=== PATIENT | female | born 1960 | race Caucasian/White ===

== ENCOUNTER 2018-02-24 04:19 | Emergency (ER) | payer MEDICARE, MEDICAID ==
[~2018-02-24] VITALS: Ht 152.4 cm; Wt 63.0 kg
[~2018-02-24 04:19] MED LIST: CLOP75TA15 PO; FENO145T38 PO; NICO-578 TD; NICO-631 TD; TRIA1CAP6 PO; ZOLP5TAB8 PO
[2018-02-24 04:21] VITALS: BP 137/80
[2018-02-24] MEDS ORDERED: normal saline 1000ML IV soln IVB ONE (04:30)
[2018-02-24 04:56] LABS: BASOPHILS % (AUTO) 0.3 % (0-1); EOSINOPHILS # (AUTO) 0.3 X10'3 (0-0.9); HEMATOCRIT 42.6 % (35.0-45.0); LYMPHOCYTES # (AUTO) 2.1 X10'3 (1.1-4.8); LYMPHOCYTES % (AUTO) 26.3 % (21-51); MEAN CORPUSCULAR HEMOGLOBIN 32.3 PG (27.0-31.0); MEAN CORPUSCULAR HGB CONC 35.3 % (33.0-36.5); MEAN CORPUSCULAR VOLUME 91.7 FL (78-98); MEAN PLATELET VOLUME 8.1 FL (7.4-10.4); MONOCYTES # (AUTO) 0.5 X10'3 (0-0.9); MONOCYTES % (AUTO) 5.6 % (2-12); NEUTROPHILS # (AUTO) 5.1 X10'3 (1.8-7.7); NEUTROPHILS % (AUTO) 63.8 % (42-75); PLATELET COUNT 230 X10'3 (140-440); RED BLOOD COUNT 4.65 X10'6 (4.20-5.60); RED CELL DISTRIBUTION WIDTH 13.5 % (11.5-14.5); WHITE BLOOD COUNT 8.1 X10'3 (4.5-11.0)
[2018-02-24 05:23] LABS: ALANINE AMINOTRANSFERASE 43 U/L (12-78); ALBUMIN 3.9 G/DL (3.4-5.0); ALKALINE PHOSPHATASE 104 IU/L (46-116); ANION GAP 14 (8-16); ASPARTATE AMINO TRANSFERASE 34 U/L (10-37); BILIRUBIN,TOTAL 0.4 MG/DL (0.1-1.0); BLOOD UREA NITROGEN 13 MG/DL (7-18); BUN/CREATININE RATIO 15.9 (6.6-38.0); CALCIUM 9.4 MG/DL (8.5-10.1); CHLORIDE 106 MMOL/L (99-107); CREATININE 0.82 MG/DL (0.40-0.90); GLUCOSE 108 MG/DL (70-104); PHOSPHORUS 4.4 MG/DL (2.3-4.5); POTASSIUM 3.8 MMOL/L (3.5-5.1); SODIUM 142 MMOL/L (135-145); TOTAL CARBON DIOXIDE 22.2 MMOL/L (24-32); TOTAL PROTEIN 7.7 G/DL (6.4-8.2); eGFR 72 ML/MIN
[2018-02-24] MEDS ORDERED: LORA0.5T PO (05:54)
== END 2018-02-24 06:10 | disposition home or self-care (01) ==
LOC: ER 04:19
DX: R00.0 Tachycardia, unspecified (principal); F41.9 Anxiety disorder, unspecified; F17.200 Nicotine dependence, unspecified, uncomplicated; Z88.5 Allergy status to narcotic agent; Z79.02 Long term (current) use of antithrombotics/antiplatelets; Z86.73 Personal history of transient ischemic attack (TIA), and cerebral infarction without residual deficits
CPT/HCPCS: 36415; 71045; 80053; 83735; 83880; 84100; 84443; 84484; 85025; 93005; 99285; J7030

== ENCOUNTER 2018-11-05 08:45 | Day surgery (SDC) | payer MEDICARE, MEDICAID ==
[2018-10-28 11:55] LABS: BASOPHILS # (AUTO) 0.1 X10'3 (0-0.2); BASOPHILS % (AUTO) 0.7 % (0-1); EOSINOPHILS # (AUTO) 0.3 X10'3 (0-0.9); EOSINOPHILS % (AUTO) 3.2 % (0-6); LYMPHOCYTES # (AUTO) 2.5 X10'3 (1.1-4.8); LYMPHOCYTES % (AUTO) 26.8 % (21-51); MEAN CORPUSCULAR HEMOGLOBIN 30.8 PG (27.0-31.0); MEAN CORPUSCULAR HGB CONC 33.7 % (33.0-36.5); MEAN CORPUSCULAR VOLUME 91.3 FL (78-98); MEAN PLATELET VOLUME 8.6 FL (7.4-10.4); MONOCYTES # (AUTO) 0.5 X10'3 (0-0.9); MONOCYTES % (AUTO) 5.8 % (2-12); NEUTROPHILS # (AUTO) 5.9 X10'3 (1.8-7.7); NEUTROPHILS % (AUTO) 63.5 % (42-75); PRE OP HEMATOCRIT 43.3 % (35.0-45.0); PRE OP HEMOGLOBIN 14.6 g/dL (12.0-16.0); PRE OP PLATELET COUNT 293 X10'3 (140-440); RED BLOOD COUNT 4.74 X10'6 (4.20-5.60); RED CELL DISTRIBUTION WIDTH 12.6 % (11.5-14.5)
[2018-10-28 12:05] LABS: ALBUMIN 4.2 G/DL (3.4-5.0); ALBUMIN/GLOBULIN RATIO 1.2 (1.1-1.5); ALKALINE PHOSPHATASE 106 IU/L (46-116); BLOOD UREA NITROGEN 11 MG/DL (7-18); BUN/CREATININE RATIO 15.3 (6.6-38.0); CHLORIDE 99 MMOL/L (99-107); CREATININE 0.72 MG/DL (0.40-0.90); PRE OP ALT 43 U/L (30-65); PRE OP ANION GAP 16 (8-16); PRE OP AST 34 U/L (10-37); PRE OP BILIRUB, TOTAL 0.7 MG/DL (0.0-1.0); PRE OP GLUCOSE 116 MG/DL (70-104); PRE OP POTASSIUM 3.7 MMOL/L (3.4-5.1); PRE OP SODIUM 137 MMOL/L (135-145); TOTAL CARBON DIOXIDE 21.6 MMOL/L (24-32); TOTAL PROTEIN 7.8 G/DL (6.4-8.2); eGFR 84 ML/MIN
[2018-11-05] VITALS (10 sets, daily range): BP systolic 96–131; BP diastolic 57–82
[~2018-11-05] VITALS: Ht 152.4 cm; Wt 64.9 kg
[~2018-11-05 08:45] MED LIST changes: +ACET-2119 PO; +ATOR40TA PO; +FENO145T36 PO; -FENO145T38 PO; +HYDR-3686 PO; +MULT-38 PO; -NICO-578 TD; -NICO-631 TD; -TRIA1CAP6 PO; +VANCOMYCIN INJ 1000 MG in NORMAL SALINE 250ml IV.SOLN IV ONE; +VERA180T PO; +ZOLP12.52 PO; -ZOLP5TAB8 PO; +cefazolin/dext.iso 2gm/50ml 50 ML IV ONE; +famotidine 20mg tablet PO ONE; +ringers solution, lacted 1,000 ML IV SCH
[2018-11-05] MEDS ORDERED: triamcinolone acetonide 40mg/ml inj ONE (09:37)
[2018-11-05] MEDS ORDERED: BUPIVAcaine/PF 2.5mg/ml (0.25%) 10ml vial ONE (09:38)
[2018-11-05] MEDS ORDERED: MIDAZolam 5mg/ml 2ml vial IV PRN (09:55)
--- NOTE | 2018-11-05 10:42 | NUR ---
PT CO ANXIETY WANTED SOME SEDATION, DR COOPER AWARE, MED IV WITH GOOD RESULTS. PT HAS HAD RECENT BLEPHAROPLASTY ANESTHESIOLOGIST AWARE, ALSO HAS SLIGHT SCRAPE ON LEFT KNEE, DR ADORNO AWARE.
[2018-11-05] MEDS ORDERED: MIDAZolam 5mg/5ml vial ONE (10:45)
[2018-11-05] MEDS ORDERED: LIDOcaine 2% (20mg/ml) 5ml vial ONE (10:46)
[2018-11-05] MEDS ORDERED: morphine 10mg/ml inj. ONE ×3 (10:46→11:22)
[2018-11-05] MEDS ORDERED: dexamethasone sod phosphate 4mg/ml inj. ONE (10:46)
[2018-11-05] MEDS ORDERED: propofol inj 20 ML IV ONE ×2 (10:46→11:18)
[2018-11-05] MEDS ORDERED: ondansetron/PF 4mg/2ml inj ONE (10:47)
[2018-11-05] MEDS ORDERED: sevoflurane 250ml liquid IH ONE (10:48)
[2018-11-05] MEDS ORDERED: cloNIDine hcl/PF 100mcg/ml inj ONE (10:48)
[2018-11-05] MEDS ORDERED: ketorolac trometh. 30mg/ml inj. ONE ×2 (10:48→11:24)
[2018-11-05] MEDS ORDERED: ringers solution, lacted 1,000 ML IV SCH ×2 (11:36→12:51)
[2018-11-05] MEDS ORDERED: labetalol 20mg/4ml (5mg/ml) syringe IV PRN ×2 (11:40→12:55)
[2018-11-05] MEDS ORDERED: HYDROmorphone inj. 0.5 MG/0.5 ML DISP.SYRIN IV PRN ×4 (11:40→12:55)
[2018-11-05] MEDS ORDERED: ondansetron/PF 4mg/2ml inj IV PRN ×2 (11:40→12:55)
[2018-11-05] MEDS ORDERED: fentaNYL/PF 50MCG/1 ML 2ML syringe IV PRN ×4 (11:40→12:55)
[2018-11-05] MEDS ORDERED: hydrALAZINE 20mg/ml inj. IV PRN ×2 (11:40→12:55)
--- NOTE | 2018-11-05 12:00 | NUR ---
Received from OR via BED , accompanied by Anesthesiologist DR VELAZQUEZ and report given by Anesthesiolgist. PATIENT WAKING UP, NO S/S OF PAIN, V/S WNL, NEUROVASCULAR CHECKS INTACT. PIV 20G TO LUE , SCD ON, DRESSING TO LEFT KNEE CDI.
--- NOTE | 2018-11-05 12:48 | NUR ---
PATIENT AWAKE DENIES PAIN, V/S STABLE
--- NOTE | 2018-11-05 13:20 | NUR ---
PATIENT A&OX4, DENIES PAIN, V/S WNL, NEUROVASCULAR CHECKS INTACT. PIV 20G TO LUE D/C, SCD OFF, DRESSING TO LEFT KNEE CDI. I HAVE REVIEWED D/C INSTRUCTIONS WITH PATIENT AND SHE HAS VERBALIZED UNDERSTANDING. PATIENT D/C HOME WITH ALL BELONGINGS AND HER DAUGHTER GAVE TRANSPORT HOME.
== END 2018-11-05 13:20 | disposition home or self-care (01) ==
LOC: PRE-OP 08:45
PROVIDERS: ATTEND Orthopaedic Surgery
DX: M23.222 Derangement of posterior horn of medial meniscus due to old tear or injury, left knee (principal); M23.262 Derangement of other lateral meniscus due to old tear or injury, left knee; M22.42 Chondromalacia patellae, left knee; F41.8 Other specified anxiety disorders; I10 Essential (primary) hypertension; E78.5 Hyperlipidemia, unspecified; E66.9 Obesity, unspecified; F17.210 Nicotine dependence, cigarettes, uncomplicated; I49.8 Other specified cardiac arrhythmias; M17.0 Bilateral primary osteoarthritis of knee; H91.8X3 Other specified hearing loss, bilateral; F10.10 Alcohol abuse, uncomplicated; F32.9 Major depressive disorder, single episode, unspecified; Z79.891 Long term (current) use of opiate analgesic; Z88.5 Allergy status to narcotic agent; Z98.41 Cataract extraction status, right eye; Z98.42 Cataract extraction status, left eye; Z86.73 Personal history of transient ischemic attack (TIA), and cerebral infarction without residual deficits; Z79.01 Long term (current) use of anticoagulants; Z87.2 Personal history of diseases of the skin and subcutaneous tissue; Z68.27 Body mass index [BMI] 27.0-27.9, adult; Z86.14 Personal history of Methicillin resistant Staphylococcus aureus infection; Z79.899 Other long term (current) drug therapy; Z98.890 Other specified postprocedural states
CPT/HCPCS: 29873; 29879; 29880; 36415; 80053; 85025; 93005; A6449; J0690; J0735; J1100; J1885; J2001; J2250; J2270; J2405; J2704; J3301; J3370; J3490; A6250; A7000; J7030; J7120

== ENCOUNTER 2019-11-21 16:30 | Emergency (ER) | payer MEDICARE, MEDICAID ==
[~2019-11-21] VITALS: Ht 165.1 cm; Wt 80.0 kg
[~2019-11-21 16:30] MED LIST changes: +FENO145T26 PO; -FENO145T36 PO; -VANCOMYCIN INJ 1000 MG in NORMAL SALINE 250ml IV.SOLN IV ONE; -cefazolin/dext.iso 2gm/50ml 50 ML IV ONE; -famotidine 20mg tablet PO ONE; -ringers solution, lacted 1,000 ML IV SCH
[2019-11-21 17:34] LABS: BASOPHILS # (AUTO) 0.1 X10'3 (0-0.2); BASOPHILS % (AUTO) 0.6 % (0-1); EOSINOPHILS # (AUTO) 0.3 X10'3 (0-0.9); EOSINOPHILS % (AUTO) 2.4 % (0-6); HEMATOCRIT 43.6 % (35.0-45.0); HEMOGLOBIN 15.4 g/dl (12.0-16.0); LYMPHOCYTES # (AUTO) 2.4 X10'3 (1.1-4.8); LYMPHOCYTES % (AUTO) 22.2 % (21-51); MEAN CORPUSCULAR HEMOGLOBIN 32.9 PG (27.0-31.0); MEAN CORPUSCULAR HGB CONC 35.4 g/dL (33.0-36.5); MEAN CORPUSCULAR VOLUME 92.8 FL (78-98); MEAN PLATELET VOLUME 8.6 FL (7.4-10.4); MONOCYTES # (AUTO) 0.8 X10'3 (0-0.9); NEUTROPHILS # (AUTO) 7.4 X10'3 (1.8-7.7); NEUTROPHILS % (AUTO) 67.8 % (42-75); PLATELET COUNT 298 X10'3 (140-440); RED CELL DISTRIBUTION WIDTH 12.6 % (11.5-14.5); WHITE BLOOD COUNT 10.9 X10'3 (4.5-11.0)
[2019-11-21 17:48] LABS: ALANINE AMINOTRANSFERASE 55 U/L (12-78); ALBUMIN 4.4 G/DL (3.4-5.0); ALBUMIN/GLOBULIN RATIO 1.2 (1.1-1.5); ALKALINE PHOSPHATASE 69 IU/L (46-116); ANION GAP 9 (8-16); ASPARTATE AMINO TRANSFERASE 47 U/L (10-37); BILIRUBIN,TOTAL 0.4 MG/DL (0.1-1.0); BLOOD UREA NITROGEN 10 MG/DL (7-18); CALCIUM 9.7 MG/DL (8.5-10.1); CHLORIDE 106 MMOL/L (99-107); CREATININE 0.83 MG/DL (0.40-0.90); GLUCOSE 104 MG/DL (70-104); POTASSIUM 3.7 MMOL/L (3.5-5.1); SODIUM 140 MMOL/L (135-145); TOTAL CARBON DIOXIDE 24.7 MMOL/L (24-32); TOTAL PROTEIN 8.1 G/DL (6.4-8.2); eGFR 71 ML/MIN
[2019-11-21] MEDS ORDERED: ondansetron 4mg rapidly disintigrating tab PO ONE (18:20)
[2019-11-21] MEDS ORDERED: famotidine/PF 10 mg/ml inj IV ONE (18:20)
[2019-11-21] MEDS ORDERED: famotidine 20mg tablet PO ONE (18:30)
[2019-11-21 18:40] LABS: LIPASE 88 U/L (73-393)
[2019-11-21] MEDS ORDERED: famotidine 10mg tablet PO ONE (18:40)
--- NOTE | 2019-11-21 18:45 | NUR ---
Patient up to the bathroom w/o problem.
[2019-11-21] MEDS ORDERED: ONDA4TAB6 PO (18:55)
[2019-11-21] MEDS ORDERED: FAMO-128 PO (18:55)
[2019-11-21] MEDS ORDERED: BACDS PO (18:56)
[2019-11-21 19:30] VITALS: BP 119/74
== END 2019-11-21 19:32 | disposition home or self-care (01) ==
LOC: ER 16:31
DX: R07.89 Other chest pain (principal); K21.9 Gastro-esophageal reflux disease without esophagitis; R11.2 Nausea with vomiting, unspecified; Z86.73 Personal history of transient ischemic attack (TIA), and cerebral infarction without residual deficits; Z94.7 Corneal transplant status; Z88.5 Allergy status to narcotic agent; Z79.899 Other long term (current) drug therapy
CPT/HCPCS: 36415; 71045; 80053; 83690; 84484; 85025; 93005; 99284

== ENCOUNTER 2020-07-29 22:56 | Emergency (ER) | payer MEDICARE, MEDICAID ==
[~2020-07-29] VITALS: Ht 152.4 cm; Wt 55.0 kg
[~2020-07-29 22:56] MED LIST changes: +FAMO-128 PO; +ONDA4TAB6 PO
[2020-07-29] MEDS ORDERED: meclizine 12.5mg tablet PO ONE (23:35)
[2020-07-29] MEDS ORDERED: ondansetron/PF 4mg/2ml inj IV ONE (23:35)
[2020-07-29] MEDS ORDERED: LORazepam 2 mg/ml vial IV ONE (23:35)
[2020-07-29] MEDS ORDERED: normal saline 1000ML IV soln IVB ONE (23:35)
[2020-07-29 23:55] LABS: CLARITY,URINE CLEAR (Clear); COLOR,URINE YELLOW (Yellow); GLUCOSE, URINE NEGATIVE (Neg); KETONES,URINE NEGATIVE (Neg); LEUKOCYTE ESTERASE ,URINE MODERATE (Neg); NITRITES, URINE NEGATIVE (Neg); OCCULT BLOOD,URINE NEGATIVE (Neg); PH,URINE 7.5 (4.8-8.0); PROTEIN,URINE NEGATIVE (Neg); UROBILINOGEN,URINE 0.2 E.U/dL (0.2-1.0)
[2020-07-29 23:57] LABS: BASOPHILS # (AUTO) 0.1 X10'3 (0-0.2); BASOPHILS % (AUTO) 0.9 % (0-1); EOSINOPHILS # (AUTO) 0.2 X10'3 (0-0.9); EOSINOPHILS % (AUTO) 2.6 % (0-6); HEMATOCRIT 43.2 % (35.0-45.0); LYMPHOCYTES # (AUTO) 1.7 X10'3 (1.1-4.8); LYMPHOCYTES % (AUTO) 18.8 % (21-51); MEAN CORPUSCULAR HGB CONC 34.8 g/dL (33.0-36.5); MEAN CORPUSCULAR VOLUME 89.2 FL (78-98); MEAN PLATELET VOLUME 7.6 FL (7.4-10.4); MONOCYTES # (AUTO) 0.7 X10'3 (0-0.9); MONOCYTES % (AUTO) 7.8 % (2-12); NEUTROPHILS # (AUTO) 6.4 X10'3 (1.8-7.7); NEUTROPHILS % (AUTO) 69.9 % (42-75); PLATELET COUNT 310 X10'3 (140-440); RED BLOOD COUNT 4.84 X10'6 (4.20-5.60); RED CELL DISTRIBUTION WIDTH 13.9 % (11.5-14.5); WHITE BLOOD COUNT 9.2 X10'3 (4.5-11.0)
[2020-07-30 00:05] LABS: UA COLLECTION TYPE NON-SPECIFIED
[2020-07-30 00:06] LABS: BACTERIA,URINE FEW /HPF (Neg); RBC,URINE NONE SEEN /HPF (0-2); SQUAMOUS EPITHELIAL CELL,UR FEW /LPF (FEW)
[2020-07-30 00:08] LABS: ALANINE AMINOTRANSFERASE 24 U/L (12-78); ALBUMIN 4.3 G/DL (3.4-5.0); ALBUMIN/GLOBULIN RATIO 1.2 (1.1-1.5); ALKALINE PHOSPHATASE 89 IU/L (46-116); ANION GAP 11 (8-16); ASPARTATE AMINO TRANSFERASE 26 U/L (10-37); BILIRUBIN,TOTAL 0.5 MG/DL (0.1-1.0); BLOOD UREA NITROGEN 9 MG/DL (7-18); BUN/CREATININE RATIO 15.5 (6.6-38.0); CALCIUM 10.1 MG/DL (8.5-10.1); CHLORIDE 102 MMOL/L (99-107); CREATININE 0.58 MG/DL (0.40-0.90); GLUCOSE 116 MG/DL (70-104); SODIUM 135 MMOL/L (135-145); TOTAL CARBON DIOXIDE 22.3 MMOL/L (24-32); TOTAL PROTEIN 7.8 G/DL (6.4-8.2); eGFR > 90 ML/MIN
[2020-07-30 00:11] LABS: POTASSIUM 3.5 MMOL/L (3.5-5.1)
[2020-07-30] MEDS ORDERED: CEPH500C5 PO (01:12)
[2020-07-30] MEDS ORDERED: ONDA4TAB12 PO (01:12)
[2020-07-30 01:25] VITALS: BP 140/82
== END 2020-07-30 01:28 | disposition home or self-care (01) ==
LOC: ER 22:56
DX: N39.0 Urinary tract infection, site not specified (principal); R42 Dizziness and giddiness; G43.909 Migraine, unspecified, not intractable, without status migrainosus; F41.9 Anxiety disorder, unspecified; F17.210 Nicotine dependence, cigarettes, uncomplicated; Z86.73 Personal history of transient ischemic attack (TIA), and cerebral infarction without residual deficits; Z98.890 Other specified postprocedural states; Z88.5 Allergy status to narcotic agent; Z79.899 Other long term (current) drug therapy
CPT/HCPCS: 36415; 80053; 81001; 85025; 87077; 87088; 87186; 96361; 96374; 96375; 99284; J2060; J2405; J7030; J8597; 81003

== ENCOUNTER 2021-08-02 08:08 | Emergency (ER) | payer MEDICARE, MEDICAID ==
[~2021-08-02] VITALS: Ht 152.4 cm; Wt 56.2 kg
[~2021-08-02 08:08] MED LIST changes: +ONDA4TAB12 PO
[2021-08-02 08:20] VITALS: BP 147/86
== END 2021-08-02 09:43 | disposition home or self-care (01) ==
LOC: ER 08:08
DX: G89.18 Other acute postprocedural pain (principal); R10.9 Unspecified abdominal pain; M10.9 Gout, unspecified; Z98.890 Other specified postprocedural states; Z88.8 Allergy status to other drugs, medicaments and biological substances; Z79.899 Other long term (current) drug therapy; G43.909 Migraine, unspecified, not intractable, without status migrainosus; Z86.73 Personal history of transient ischemic attack (TIA), and cerebral infarction without residual deficits; Z79.2 Long term (current) use of antibiotics
CPT/HCPCS: 99281

== ENCOUNTER 2021-11-20 08:59 | Day surgery (SDC) | payer MEDICARE, MEDICAID ==
[2021-11-14 15:38] LABS: BASOPHILS # (AUTO) 0.1 X10'3 (0-0.2); BASOPHILS % (AUTO) 0.8 % (0-1); EOSINOPHILS # (AUTO) 0.2 X10'3 (0-0.9); EOSINOPHILS % (AUTO) 2.3 % (0-6); LYMPHOCYTES # (AUTO) 1.6 X10'3 (1.1-4.8); LYMPHOCYTES % (AUTO) 22.5 % (21-51); MEAN CORPUSCULAR HEMOGLOBIN 33.9 PG (27.0-31.0); MEAN CORPUSCULAR HGB CONC 34.5 g/dL (33.0-36.5); MEAN CORPUSCULAR VOLUME 98.2 FL (78-98); MEAN PLATELET VOLUME 7.6 FL (7.4-10.4); MONOCYTES # (AUTO) 0.5 X10'3 (0-0.9); MONOCYTES % (AUTO) 7.7 % (2-12); NEUTROPHILS # (AUTO) 4.7 X10'3 (1.8-7.7); NEUTROPHILS % (AUTO) 66.7 % (42-75); PRE OP HEMATOCRIT 40.3 % (35.0-45.0); PRE OP HEMOGLOBIN 13.9 g/dL (12.0-16.0); PRE OP PLATELET COUNT 204 X10'3 (140-440); RED CELL DISTRIBUTION WIDTH 14.1 % (11.5-14.5)
[2021-11-14 15:54] LABS: ALBUMIN/GLOBULIN RATIO 1.2 (1.1-1.5); ALKALINE PHOSPHATASE 133 IU/L (46-116); BLOOD UREA NITROGEN 14 MG/DL (7-18); BUN/CREATININE RATIO 18.7 (6.6-38.0); CALCIUM 9.8 MG/DL (8.5-10.1); CHLORIDE 105 MMOL/L (99-107); CREATININE 0.75 MG/DL (0.40-0.90); PRE OP ANION GAP 12 (8-16); PRE OP BILIRUB, TOTAL 0.7 MG/DL (0.0-1.0); PRE OP GLUCOSE 112 MG/DL (70-104); PRE OP POTASSIUM 3.6 MMOL/L (3.4-5.1); PRE OP SODIUM 141 MMOL/L (135-145); TOTAL CARBON DIOXIDE 23.9 MMOL/L (24-32); TOTAL PROTEIN 7.4 G/DL (6.4-8.2); eGFR 79 ML/MIN
[2021-11-14 15:59] LABS: PRE OP ALT 98 U/L (30-65); PRE OP AST 113 U/L (10-37)
[~2021-11-20] VITALS: Ht 152.4 cm; Wt 57.7 kg
[2021-11-20] VITALS (12 sets, daily range): BP systolic 125–141; BP diastolic 62–80
[~2021-11-20 08:59] MED LIST changes: +ALBU18HF2 INH; +AMIT-189 PO; -ATOR40TA PO; +DIAZ5TAB5 PO; +DOCUMENT DATE & TIME OF BETA-BLOCKER PO ONE; -FAMO-128 PO; +FLUT16SP26 INH; -HYDR-3686 PO; +ICOS1CAP PO; +METO-395 PO; -ONDA4TAB12 PO; -ONDA4TAB6 PO; +ROSU40TA22 PO; -VERA180T PO; +cefazolin/dext.iso 2gm/50ml IV ONE; +famotidine 20mg tablet PO ONE; +ringers solution, lacted 1,000 ML IV SCH
[2021-11-20] MEDS ORDERED: LIDOcaine 1% 30ml preserv. free vial ONE (11:01)
[2021-11-20] MEDS ORDERED: BUPIVACAINE liposomal/PF 13.3 MG/ML vial IM ONE (11:01)
[2021-11-20] MEDS ORDERED: BUPIVAcaine/PF 2.5mg/ml (0.25%) 10ml vial ONE (11:01)
[2021-11-20] MEDS ORDERED: BUPIVAcaine/PF 2.5 mg/ml (0.25%) 30ml vial ONE (11:01)
[2021-11-20] MEDS ORDERED: ringers solution, lacted 1,000 ML IV SCH (11:30)
[2021-11-20] MEDS ORDERED: morphine 2 MG/ML inj. syringe IV PRN (11:30)
[2021-11-20] MEDS ORDERED: proCHLORperazine 10 MG/2 ml inj IV PRN (11:30)
[2021-11-20] MEDS ORDERED: morphine 4 MG/ML inj SYRINge IV PRN (11:30)
[2021-11-20] MEDS ORDERED: meperidine/PF 25mg/ml syringe IV PRN ×3 (11:30)
[2021-11-20] MEDS ORDERED: ondansetron/PF 4mg/2ml inj IV PRN (11:30)
[2021-11-20] MEDS ORDERED: fentaNYL/PF 50MCG/1 ML 2ML syringe ONE ×2 (11:34→11:58)
[2021-11-20] MEDS ORDERED: midazolam 1 mg/ML 2ml injection ONE (11:35)
[2021-11-20] MEDS ORDERED: propofol inj 20 ML IV ONE (11:46)
[2021-11-20] MEDS ORDERED: rocuronium 10mg/ml inj IV ONE (11:46)
[2021-11-20] MEDS ORDERED: dexamethasone sod phosphate 4mg/ml inj. ONE (11:46)
[2021-11-20] MEDS ORDERED: LIDOcaine 2% (20mg/ml) 5ml vial ONE (11:46)
[2021-11-20] MEDS ORDERED: neostigmine methylsulfate 1 MG/ML 10ml vial ONE (11:46)
[2021-11-20] MEDS ORDERED: esmolol inj. 10 ML IV ONE (11:46)
[2021-11-20] MEDS ORDERED: glycopyrrolate 0.2mg/ml inj ONE (11:46)
[2021-11-20] MEDS ORDERED: ondansetron/PF 4mg/2ml inj ONE (11:46)
--- NOTE | 2021-11-20 12:31 | NUR ---
PT CAME OUT OF OR WITH GROANING, PER DR VINCENZO GAINES IV DEMEROL 25, IV PUSH. Addendum: 11/20/21 at 1316 by Mariaelena Grewal RN RN Amended: Links added.
--- NOTE | 2021-11-20 12:31 | NUR ---
Received from OR via , accompanied by Anesthesiologist DR LOYA and report given by Anesthesiolgist. PTP PRESENTS WITH 20G RIGHT HAND, ABD DRESSING DRY AND INTACT, VSS. Addendum: 11/20/21 at 1244 by Mariaelena Grewal RN, RN Amended: Links added.
[2021-11-20] MEDS ORDERED: oxyCODONE/APAP 5-325mg tablet PO PRN (12:55)
[2021-11-20] MEDS: oxyCODONE/APAP 5-325mg tablet PO PRN ×2 (14:39→15:47)
--- NOTE | 2021-11-20 14:40 | NUR ---
PT'S RIDE WILL NOT BE HERE UNTIN 153. [facility] CALLED AND THEY ARE WILLING TO TAKE THE PT UNTIL PT RIDE IS HERE. PT GIVEN INCENTIVE SPIROMETER. Addendum: 11/20/21 at 1441 by Mariaelena Grewal RN, RN Amended: Links added.
--- NOTE | 2021-11-20 14:48 | NUR ---
PT TAKEN TO [address], REPORT GIVEN TO YVONNE SOTELO Addendum: 11/20/21 at 1449 by Mariaelena Grewal RN, RN Amended: Links added.
--- NOTE | 2021-11-20 16:01 | NUR ---
ALL DC CRITERIA MET. IV DC'D WITH CANULA INTACT. DC INSTRUCTIONS REVIEWED WITH PT, PT VERBALIZED UNDERSTANDING WITH NO FURTHER QUESTIONS AT THIS TIME. PT TAKEN OUT IN WHEELCHAIR TO DAUGHTERS PRIVATE VEHICLE TO TAKE PT HOME. Addendum: 11/20/21 at 1719 by Mariaelena Grewal RN, RN Amended: Links added.
== END 2021-11-20 16:01 | disposition home or self-care (01) ==
LOC: PAS 08:59
PROVIDERS: ATTEND Surgery
DX: K43.9 Ventral hernia without obstruction or gangrene (principal); G47.00 Insomnia, unspecified; E78.5 Hyperlipidemia, unspecified; Z98.41 Cataract extraction status, right eye; Z98.42 Cataract extraction status, left eye; Z86.73 Personal history of transient ischemic attack (TIA), and cerebral infarction without residual deficits; Z98.890 Other specified postprocedural states; Z94.7 Corneal transplant status; Z88.5 Allergy status to narcotic agent; Z79.899 Other long term (current) drug therapy; F17.210 Nicotine dependence, cigarettes, uncomplicated; Z72.89 Other problems related to lifestyle; Z79.01 Long term (current) use of anticoagulants; Z20.822 Contact with and (suspected) exposure to COVID-19; Z82.61 Family history of arthritis; Z82.49 Family history of ischemic heart disease and other diseases of the circulatory system; Z80.3 Family history of malignant neoplasm of breast
CPT/HCPCS: 36415; 49652; 64488; 80053; 82948; 85025; 93005; C1781; C9290; J0690; J1100; J2175; J2250; J2270; J2405; J2704; J2710; J3010; J3490; J7030; J7120; U0003; U0005; Z7506; Z7508; A4215; A4618

== ENCOUNTER 2021-11-24 16:49 | Emergency (ER) | payer MEDICARE, MEDICAID ==
[~2021-11-24] VITALS: Ht 152.4 cm; Wt 60.0 kg
[~2021-11-24 16:49] MED LIST changes: -DOCUMENT DATE & TIME OF BETA-BLOCKER PO ONE; -cefazolin/dext.iso 2gm/50ml IV ONE; -famotidine 20mg tablet PO ONE; -ringers solution, lacted 1,000 ML IV SCH
[2021-11-24] MEDS ORDERED: normal saline 1000ML IV soln IVB ONE (17:00)
[2021-11-24] MEDS ORDERED: ondansetron/PF 4mg/2ml inj IV ONE (17:00)
[2021-11-24] MEDS ORDERED: morphine 4 MG/ML inj SYRINge IV PRN (17:00)
[2021-11-24] MEDS ORDERED: iohexol 300mg/ml 100ml inj. ONE (17:27)
[2021-11-24 17:43] LABS: BASOPHILS % (AUTO) 0.7 % (0-1); EOSINOPHILS # (AUTO) 0.3 X10'3 (0-0.9); EOSINOPHILS % (AUTO) 4.2 % (0-6); HEMATOCRIT 36.8 % (35.0-45.0); LYMPHOCYTES # (AUTO) 2.3 X10'3 (1.1-4.8); LYMPHOCYTES % (AUTO) 31.9 % (21-51); MEAN CORPUSCULAR HEMOGLOBIN 35.1 PG (27.0-31.0); MEAN CORPUSCULAR HGB CONC 35.2 g/dL (33.0-36.5); MEAN CORPUSCULAR VOLUME 99.7 FL (78-98); MEAN PLATELET VOLUME 7.8 FL (7.4-10.4); MONOCYTES # (AUTO) 0.4 X10'3 (0-0.9); MONOCYTES % (AUTO) 5.1 % (2-12); NEUTROPHILS # (AUTO) 4.2 X10'3 (1.8-7.7); NEUTROPHILS % (AUTO) 58.1 % (42-75); PLATELET COUNT 225 X10'3 (140-440); RED BLOOD COUNT 3.69 X10'6 (4.20-5.60); RED CELL DISTRIBUTION WIDTH 13.3 % (11.5-14.5); WHITE BLOOD COUNT 7.3 X10'3 (4.5-11.0)
[2021-11-24 17:53] LABS: ALANINE AMINOTRANSFERASE 51 U/L (12-78); ALBUMIN 3.5 G/DL (3.4-5.0); ALBUMIN/GLOBULIN RATIO 1.1 (1.1-1.5); ALKALINE PHOSPHATASE 111 IU/L (46-116); ANION GAP 8 (8-16); ASPARTATE AMINO TRANSFERASE 56 U/L (10-37); BILIRUBIN,TOTAL 0.3 MG/DL (0.1-1.0); BLOOD UREA NITROGEN 8 MG/DL (7-18); BUN/CREATININE RATIO 13.3 (6.6-38.0); CALCIUM 8.5 MG/DL (8.5-10.1); CHLORIDE 108 MMOL/L (99-107); GLUCOSE 115 MG/DL (70-104); LIPASE 75 U/L (73-393); POTASSIUM 3.9 MMOL/L (3.5-5.1); SODIUM 142 MMOL/L (135-145); TOTAL CARBON DIOXIDE 25.6 MMOL/L (24-32); TOTAL PROTEIN 6.7 G/DL (6.4-8.2); eGFR > 90 ML/MIN
--- NOTE | 2021-11-24 18:20 | NUR ---
Patient up to the bathroom.
[2021-11-24 19:13] VITALS: BP 126/75
[2021-11-26 11:05] LABS: OCCULT BLOOD STOOL POSITIVE (Neg)
== END 2021-11-24 19:16 | disposition home or self-care (01) ==
LOC: ER 16:49
DX: K62.5 Hemorrhage of anus and rectum (principal); M62.838 Other muscle spasm; K43.9 Ventral hernia without obstruction or gangrene; G43.909 Migraine, unspecified, not intractable, without status migrainosus; F41.9 Anxiety disorder, unspecified; Z86.73 Personal history of transient ischemic attack (TIA), and cerebral infarction without residual deficits; Z98.890 Other specified postprocedural states; Z88.5 Allergy status to narcotic agent; Z79.899 Other long term (current) drug therapy
CPT/HCPCS: 36415; 74177; 80053; 82272; 83690; 85025; 96361; 96374; 96375; 99285; J2270; J2405; J7030; Q9967

== ENCOUNTER 2021-12-25 16:20 | Emergency (ER) | payer MEDICARE, MEDICAID ==
[~2021-12-25] VITALS: Ht 154.9 cm; Wt 55.0 kg
[2021-12-25] MEDS ORDERED: proCHLORperazine 10 MG/2 ml inj IM ONE (16:25)
[2021-12-25 18:42] VITALS: BP 115/70
== END 2021-12-25 18:48 | disposition home or self-care (01) ==
LOC: ER 16:20
DX: R42 Dizziness and giddiness (principal); F10.10 Alcohol abuse, uncomplicated; R47.81 Slurred speech; G43.909 Migraine, unspecified, not intractable, without status migrainosus; Z86.73 Personal history of transient ischemic attack (TIA), and cerebral infarction without residual deficits; Z98.890 Other specified postprocedural states; Z88.8 Allergy status to other drugs, medicaments and biological substances; Z79.899 Other long term (current) drug therapy; Z94.7 Corneal transplant status; Y90.9 Presence of alcohol in blood, level not specified
CPT/HCPCS: 96372; 99284; J0780

== ENCOUNTER 2022-03-13 15:03 | Emergency (ER) | payer MEDICARE, MEDICAID ==
[~2022-03-13] VITALS: Ht 152.4 cm; Wt 59.1 kg
[2022-03-13] MEDS ORDERED: morphine 4 MG/ML inj SYRINge IM ONE (15:30)
[2022-03-13] MEDS ORDERED: HYDROcodone/acetaminophen 10/325mg tab PO ONE (15:30)
[2022-03-13] MEDS ORDERED: morphine 4 MG/ML inj SYRINge IV ONE (15:55)
[2022-03-13 16:10] VITALS: BP 105/59
[2022-03-13] MEDS ORDERED: HYDR-3972 PO (17:30)
== END 2022-03-13 17:45 | disposition home or self-care (01) ==
LOC: ER 15:04
DX: S70.01XA Contusion of right hip, initial encounter (principal); S09.90XA Unspecified injury of head, initial encounter; M25.551 Pain in right hip; M79.661 Pain in right lower leg; G43.909 Migraine, unspecified, not intractable, without status migrainosus; F17.200 Nicotine dependence, unspecified, uncomplicated; F41.9 Anxiety disorder, unspecified; Z86.73 Personal history of transient ischemic attack (TIA), and cerebral infarction without residual deficits; Z98.890 Other specified postprocedural states; Z88.5 Allergy status to narcotic agent; Z79.899 Other long term (current) drug therapy; W01.0XXA Fall on same level from slipping, tripping and stumbling without subsequent striking against object, initial encounter; Y93.89 Activity, other specified; Y92.89 Other specified places as the place of occurrence of the external cause; Y99.8 Other external cause status
CPT/HCPCS: 70450; 73502; 96374; 99284; J2270